=== PATIENT | female | born 1990 | race Caucasian/White ===

== ENCOUNTER 2017-08-05 12:34 | Emergency (ER) | payer MEDICAID, OTHER ==
[2017-08-05 12:34] VITALS: BMI 21.9
[2017-08-05 12:41] VITALS: BP 135/80; PULSE 99; RESP 18; TEMP 99.1; O2SAT 99
--- NOTE | 2017-08-05 13:54 | C.PDOC ---
History Of Present Illness 27 y/o female presents to ED with c/o toothache and possible allergic reaction to unknown antibiotics from [place] taken yesterday. Patient states today she woke up with lip swelling and tightness prompting visit to ED. Patient denies sob, throat tightness or any other complaints at this time. Time Seen by Provider: 08/05/17 12:55 Chief Complaint (Nursing): Headache History Per: Patient History/Exam Limitations: no limitations Onset/Duration Of Symptoms: Days Current Symptoms Are (Timing): Still Present Quality: Tightness Past Medical History Reviewed: Historical Data, Nursing Documentation, Vital Signs Vital Signs: Last Vital Signs Temp 99.1 F 08/05/17 12:38 Pulse 99 H 08/05/17 12:38 Resp 18 08/05/17 12:38 BP 135/80 08/05/17 12:38 Pulse Ox 99 08/05/17 13:57 - Medical History PMH: Anxiety, Asthma, Bipolar Disorder, Depression Surgical History: No Surg Hx - [facility] Procedures IMMOBILIZ/WOUND ATTN NEC (10/08/13) Family History: States: No Known Family Hx - Social History Hx Tobacco Use: Yes (4-5 per day) Hx Alcohol Use: Yes Hx Substance Use: Yes (whenever she gets her hands on it) - Immunization History Hx Tetanus Toxoid Vaccination: No Hx Influenza Vaccination: No Hx Pneumococcal Vaccination: No Review Of Systems Except As Marked, All Systems Reviewed And Found Negative. ENT: Positive for: Mouth Pain (toothache) Physical Exam - Physical Exam Appears: Non-toxic, No Acute Distress Skin: Warm, Dry, No Rash Head: Atraumatic, Normacephalic Eye(s): bilateral: Normal Inspection Lips: Swelling, No Contusion, No Laceration Teeth: Caries, No Loose, No Avulsed Throat: Normal, No Erythema, No Exudate Cardiovascular: Rhythm Regular Respiratory: Normal Breath Sounds, No Rales, No Rhonchi, No Wheezing Gastrointestinal/Abdominal: Soft, No Tenderness, No Guarding, No Rebound Neurological/Psych: Oriented x3, Normal Speech, Normal Cognition ED Course And Treatment O2 Sat by Pulse Oximetry: 99 (RA) Pulse Ox Interpretation: Normal Medical Decision Making Medical Decision Making: Assessment: Dental caries, allergic reaction Progress: Different abx given, Prednisone administered. Patient d/c to f.u with dental clinic Disposition Counseled Patient/Family Regarding: Diagnosis, Need For Followup, Rx Given - Disposition Disposition: HOME/ ROUTINE Disposition Time: 13:55 Condition: STABLE Additional Instructions: follow up with dental clinic call to make an appointment take medications as prescribed return to ER if symptoms worsens or progress Prescriptions: Amoxicillin 875 mg PO BID #20 tablet Naproxen [Naprosyn] 500 mg PO BID PRN #16 tab PRN Reason: Pain, Moderate (4-7) predniSONE [predniSONE Tab] 50 mg PO DAILY #4 tab Instructions: Dental Pain (DC), Drug Allergy Forms: [facility] ([place]ian), General Discharge Instructions - Clinical Impression Clinical Impression: Pain, dental, Allergic reaction caused by a drug - Scribe Statement The provider has reviewed the documentation as recorded by the Saleem Jackson All medical record entries made by the Richardibkaley were at my direction and personally dictated by me. I have reviewed the chart and agree that the record accurately reflects my personal performance of the history, physical exam, medical decision making, and the department course for this patient. I have also personally directed, reviewed, and agree with the discharge instructions and disposition.
--- NOTE | 2017-08-05 13:54 | C.PDOC ---
Time Seen by Provider: 08/05/17 12:55 Chief Complaint (Nursing): Headache Past Medical History Vital Signs: Last Vital Signs Temp 99.1 F 08/05/17 12:38 Pulse 99 H 08/05/17 12:38 Resp 18 08/05/17 12:38 BP 135/80 08/05/17 12:38 Pulse Ox 99 08/05/17 12:38 - Medical History PMH: Anxiety, Asthma, Bipolar Disorder, Depression Denies: Chronic Kidney Disease - [facility] Procedures IMMOBILIZ/WOUND ATTN NEC (10/08/13) Family History: States: Unknown Family Hx - Social History Hx Tobacco Use: Yes (4-5 per day) Hx Alcohol Use: Yes Hx Substance Use: Yes (whenever she gets her hands on it) - Immunization History Hx Tetanus Toxoid Vaccination: No Hx Influenza Vaccination: No Hx Pneumococcal Vaccination: No ED Course And Treatment O2 Sat by Pulse Oximetry: 99 Disposition - Disposition Disposition: HOME/ ROUTINE Disposition Time: 13:54
== END 2017-08-05 14:07 | disposition home or self-care (01) ==
LOC: C.ER 12:34
DX: K08.89 Other specified disorders of teeth and supporting structures (principal); T50.905A Adverse effect of unspecified drugs, medicaments and biological substances, initial encounter; Z72.0 Tobacco use

== ENCOUNTER 2017-10-19 08:30 | Emergency (ER) | payer OTHER ==
[2017-10-19 08:34] VITALS: BMI 22.1
[2017-10-19 08:36] VITALS: O2SAT 100
[2017-10-19] MEDS ORDERED: Sodium Chloride 0.9% 1,000 ML IV ONE (08:51)
[2017-10-19] MEDS ORDERED: Sodium Chloride 0.9% 1,000 ML ONE (09:03)
[2017-10-19 09:40] LABS: BASO # 0.1 K/uL (0.0-0.2); BASO % 1.3 % (0.0-2.0); EOS # 0.3 K/uL (0.0-0.7); EOS % 4.9 % (0.0-4.0); HEMOGLOBIN 12.2 g/dL (11.0-16.0); LYMPH # 2.3 K/uL (1.0-4.3); LYMPH % 36.6 % (20.0-40.0); MEAN CELL VOLUME 86.6 fL (81.0-99.0); MEAN CORPUSCULAR HEMOGLOBIN 28.9 pg (27.0-31.0); MEAN CORPUSCULAR HGB CONC 33.4 g/dL (33.0-37.0); MEAN PLATELET VOLUME 7.9 fL (7.2-11.7); MONO # 0.5 K/uL (0.0-0.8); MONO % 8.6 % (0.0-10.0); NEUT % 48.6 % (50.0-75.0); RBC 4.24 Mil/uL (3.80-5.20); RED CELL DISTRIBUTION WIDTH 15.6 % (11.5-14.5); WHITE BLOOD COUNT 6.2 K/uL (4.8-10.8)
--- NOTE | 2017-10-19 09:54 | C.PDOC ---
History Of Present Illness 27 y/o female presents to ED for complaints of abdominal pain and right flank pain associated with nausea and vomiting that began 2 days ago. Patient states she has Hx of kidney stones since 7 years ago and symptoms are similar to previous. Denies diarrhea, dysuria, vaginal bleeding or discharge. Time Seen by Provider: 10/19/17 08:38 Chief Complaint (Nursing): Abdominal Pain History Per: Patient History/Exam Limitations: no limitations Onset/Duration Of Symptoms: Days (2 ) Current Symptoms Are (Timing): Still Present Location Of Pain/Discomfort: Diffuse Radiation Of Pain To:: Flank (right) Associated Symptoms: Nausea, Vomiting. denies: Fever, Chills, Diarrhea Exacerbating Factors: None Alleviating Factors: None Last Bowel Movement: Today Recent travel outside of the [place]: No Abnormal Vaginal Bleeding: No Past Medical History Reviewed: Historical Data, Nursing Documentation, Vital Signs Vital Signs: Last Vital Signs Temp 97.8 F 10/19/17 08:34 Pulse 73 10/19/17 08:34 Resp 16 10/19/17 08:34 BP 112/70 10/19/17 08:34 Pulse Ox 100 10/19/17 10:05 - Medical History PMH: Anxiety, Asthma, Bipolar Disorder, Depression - [facility] Procedures IMMOBILIZ/WOUND ATTN NEC (10/08/13) Family History: States: Unknown Family Hx - Social History Hx Tobacco Use: Yes (4-5 per day) Hx Alcohol Use: Yes Hx Substance Use: Yes (whenever she gets her hands on it) - Immunization History Hx Tetanus Toxoid Vaccination: No Hx Influenza Vaccination: No Hx Pneumococcal Vaccination: No Review Of Systems Except As Marked, All Systems Reviewed And Found Negative. Gastrointestinal: Positive for: Nausea, Vomiting, Abdominal Pain (Right sided ) , Other (Right flank pain ) Physical Exam - Physical Exam Appears: Well, Non-toxic, No Acute Distress Skin: Normal Color, Warm, Dry, No Rash Head: Atraumatic, Normacephalic Eye(s): bilateral: Normal Inspection, PERRL, EOMI Oral Mucosa: Moist Neck: Supple Chest: Symmetrical, No Tenderness Cardiovascular: Rhythm Regular, No Murmur Respiratory: Normal Breath Sounds, No Decreased Breath Sounds, No Rales, No Rhonchi, No Wheezing Gastrointestinal/Abdominal: Soft, Tenderness (RLQ; no pain; no mcburney's point) Back: CVA Tenderness (Right sided ) Extremity: Normal ROM, No Deformity Extremity: Bilateral: Atraumatic, Normal Color And Temperature, Normal ROM Neurological/Psych: Oriented x3, Normal Speech Gait: Steady ED Course And Treatment - Laboratory Results Result Diagrams: 10/19/17 09:18 10/19/17 09:18 O2 Sat by Pulse Oximetry: 100 (RA) Pulse Ox Interpretation: Normal Medical Decision Making Medical Decision Making: Administered Toradol, Zofran and IV fluids. Ordered CT abdomen&Pelvis, blood work and urinalysis. Impression: - Flank pain reviewed ct with patient, will discharge home to follow up with urology. patient to follow up with pmd for hepatic finding as well. Disposition Counseled Patient/Family Regarding: Studies Performed, Diagnosis, Need For Followup, Rx Given - Disposition Referrals: Pato Marquez MD [Staff Provider] - Disposition: HOME/ ROUTINE Disposition Time: 11:59 Condition: IMPROVED Additional Instructions: follow up with urology and your family doctor within 2 days take copy of results with your to your appointment take medication as needed for pain return to ER if symptoms worsens or progress Prescriptions: Naproxen [Naprosyn] 500 mg PO BID PRN #16 tab PRN Reason: Pain, Moderate (4-7) Instructions: Renal Colic (DC), Cysts in the Liver Forms: [facility] ([place]), General Discharge Instructions, Gen Discharge Inst [place], [facility] ([place]an) - Clinical Impression Clinical Impression: Renal colic on right side, Lesion of left lobe of liver - Scribe Statement The provider has reviewed the documentation as recorded by the Saleem Watson All medical record entries made by the Richardibkaley were at my direction and personally dictated by me. I have reviewed the chart and agree that the record accurately reflects my personal performance of the history, physical exam, medical decision making, and the department course for this patient. I have also personally directed, reviewed, and agree with the discharge instructions and disposition.
[2017-10-19 10:39] LABS: ALBUMIN 3.9 g/dL (3.5-5.0); BLOOD UREA NITROGEN 12 mg/dL (7-17); GFR NON-AFRICAN AMERICAN > 60
[2017-10-19 10:40] LABS: ALB/GLOB RATIO 1.3 (1.0-2.1); ALT/SGPT 22 U/L (9-52); AST/SGOT 21 U/L (14-36); LIPASE 108 U/L (23-300)
[2017-10-19 11:29] LABS: URINE BILIRUBIN NEGATIVE (NEGATIVE); URINE BLOOD 3+ (NEGATIVE); URINE CLARITY Hazy (Clear); URINE COLOR Yellow (YELLOW); URINE GLUCOSE (UA) NORMAL (Normal); URINE LEUKOCYTE ESTERASE NEG Leu/uL (Negative); URINE PROTEIN NEGATIVE (NEGATIVE); URINE UROBILINOGEN NORMAL mg/dL (0.2-1.0)
--- NOTE | 2017-10-19 11:37 | CT ---
PROCEDURE: CT Abdomen and Pelvis without Oral or IV contrast. HISTORY: abd pain COMPARISON: None available TECHNIQUE: Contiguous axial images of the abdomen and pelvis. No oral or IV contrast administered. Coronal and Sagittal reformats generated and reviewed. Radiation dose: Total exam DLP = 313.83 mGy-cm. This CT exam was performed using one or more of the following dose reduction techniques: Automated exposure control, adjustment of the mA and/or kV according to patient size, and/or use of iterative reconstruction technique. FINDINGS: There is limited evaluation of the solid organs without the administration of IV contrast. LOWER THORAX: No visible consolidation, pleural effusion, or pneumothorax. LIVER: 7 mm hypodensity in the left hepatic lobe (series 3, image 27), of unclear etiology possibly related to volume averaging, vessel, or cyst. GALLBLADDER AND BILE DUCTS: Unremarkable unenhanced appearance. PANCREAS: Unremarkable unenhanced appearance. SPLEEN: Unremarkable unenhanced appearance. ADRENALS: Unremarkable unenhanced appearance. KIDNEYS AND URETERS: Nonobstructing 2 mm right lower pole renal calculus. No hydronephrosis or obstructing renal calculus. BLADDER: The urinary bladder appears unremarkable. REPRODUCTIVE: Uterus is present. APPENDIX: The appendix appears within normal limits of caliber. No secondary signs of acute appendicitis. BOWEL: The stomach is nondistended. Lack of oral contrast limits evaluation for bowel pathology. The bowel loops appear within normal limits of caliber without evidence of intestinal obstruction. Moderate constipation. PERITONEUM: No significant free fluid. No definite free air. LYMPH NODES: No bulky lymphadenopathy identified. VASCULATURE: No aortic aneurysm. BONES: No acute osseous abnormality is detected. OTHER FINDINGS: None. IMPRESSION: Moderate constipation. Nonobstructing 2 mm right lower pole renal calculus. No hydronephrosis or obstructing calculus identified. 7 mm nonspecific hypodensity within the left hepatic lobe as above.
[2017-10-19 11:50] LABS: SQUAMOUS EPITHIAL 2 /hpf (0-5); URINE BACTERIA RARE (<OCC)
[2017-10-19 12:01] VITALS: BP 116/76; PULSE 65; TEMP 98.7
[2017-10-19 12:45] VITALS: RESP 16
== END 2017-10-19 12:44 | disposition home or self-care (01) ==
LOC: C.ER 08:30
DX: N20.0 Calculus of kidney (principal); K76.9 Liver disease, unspecified
CPT/HCPCS: 74176; 80053; 81001; 83690; 85025; 96361; 96374; 96375; 99284; J1885; J2405; J7030